=== PATIENT | female | born 1955 | race Caucasian/White ===

== ENCOUNTER → 2017-09-09 | Day surgery (SDC) | payer OTHER ==
[~2017-09-09] MED LIST: Dextrose 5%-0.45% NaCl 1,000 ML IV SCH; Midazolam 1 MG/ML 2 ML SDV IV ONE; Midazolam 1 MG/ML 2 ML SDV ONE; Sodium Chloride 0.9% 10 ML Syringe FLUSH PRN; fentaNYL 100 MCG/2 ML SDV IV ONE; fentaNYL 100 MCG/2 ML SDV ONE
--- NOTE | 2017-09-09 09:41 | OR ---
DATE: 09/09/2017 PROCEDURES PERFORMED: Total colonoscopy, NBI with magnification, and cold snare polypectomy. INSTRUMENT USED: CF-H180AL Olympus videocolonoscope. PREMEDICATIONS: Fentanyl 100 mcg intravenous and Versed 4 mg intravenous. Nasal 2 L O2 cannula. The procedure was done under pulse oximetry, BP recording, and property assessment monitor. INDICATION: Screening colonoscopic examination is done for detection of any polypoid lesions and removal, endoscopic hemostasis therapy if needed. DESCRIPTION OF PROCEDURE: Initial rectal exam showed large external hemorrhoidal tags. Rigid anoscopy showed small internal hemorrhoids without bleeding from them. The colonoscope was passed with ease. Numerous scattered diverticula were noted in the distal left colon along with deformity. The scope was passed with relative ease up to the ileocecal area, photographs were taken of the normal-appearing cecum identified by landmarks of appendiceal orifice and double-bulged ileocecal folds. No bleeding was noted from any of the visualized areas at the commencement of the examination. The bowel preparation was found to be adequate. No stricture. No vascular ectasia. No large isolated ulcerations seen. No evidence of diffuse inflammatory bowel disease in the form of friability, contact bleeding, or ulcerations. Probing the proximal sides of folds and flexures, using adequate distention and clearing of the stool material, withdrawal of the scope was made, cecum to rectum time over 6 minutes. In the distal rectum, a 5 mm sized benign-appearing polyp was noted, NBI including magnification views were obtained, photographs were taken, cold snare polypectomy was done, and the tissue was retrieved and sent for histopathology. No bleeding was noted from any of the visualized areas at the completion of the examination. IMPRESSION: 1. External and internal hemorrhoids. 2. Diverticulosis. 3. Rectal polyp. The patient tolerated the procedure well. [facility] /[id number]
--- NOTE | 2017-09-09 10:32 | LETTER ---
09/09/2017 David Shultz MD [facility] [address], [address] [place] [address] RE: JIMMYYUDY FORMAN : [address] Shultz: Ms. Yudy Serra had colonoscopic examination done this morning and she tolerated the procedure well. I herewith send a copy of the endoscopy note and photographs for your review. Thank you. Sincerely, [facility] /[id number]
[2017-09-09 14:05] VITALS: BP 140/67
== END ==
LOC: DL.ENDO 05:20
PROVIDERS: ATTEND Internal Medicine Gastroenterology
DX: Z12.11 Encounter for screening for malignant neoplasm of colon (principal); D12.8 Benign neoplasm of rectum; K57.30 Diverticulosis of large intestine without perforation or abscess without bleeding; K64.8 Other hemorrhoids; K64.4 Residual hemorrhoidal skin tags; I10 Essential (primary) hypertension; F17.200 Nicotine dependence, unspecified, uncomplicated; E03.9 Hypothyroidism, unspecified
CPT/HCPCS: 45385; J2250; J3010; J7042

== ENCOUNTER 2020-05-10 12:16 | Observation (INO) | payer OTHER ==
[2020-05-10] MEDS ORDERED: Sodium Chloride 0.9% 1,000 ML IV ONE (12:43)
[2020-05-10] MEDS ORDERED: Famotidine 20 MG/2 ML SDV IVPUSH ONE (12:45)
[2020-05-10] MEDS ORDERED: diphenhydrAMINE 50 MG/ML SDV IVPUSH ONE (12:45)
[2020-05-10] MEDS ORDERED: methylPREDNISolone Sodium Succinate 125 MG/2 ML SDV IVPUSH ONE (12:45)
--- NOTE | 2020-05-10 12:58 | EDM.PDOC ---
ED HPI GENERAL MEDICAL PROBLEM - General Chief Complaint: ENT Problem Stated Complaint: SWOLLEN TONGUE Time Seen by Provider: 05/10/20 12:28 Source of Information: Reports: Patient, RN, RN Notes Reviewed History Limitations: Reports: No Limitations - History of Present Illness INITIAL COMMENTS - FREE TEXT/NARRATIVE: Patient is a 64-year-old female who presents to ER with complaint of tongue swelling that began about 10:00 A.M. She has difficulty swallowing. States she got dizzy and fell at 09:00 A.M.and felt like she was going to pass out. Her lsat dizzy spell was last April for a syncopal episode. She had incontinence of urine with dizzy episode today. Patient states takes Lisinopril for hypertension that she has taken for 1 year. She [facility]. She had positive November. She has nausea now. No chest pain, shortness of breath, neck pain, sinus pressure, loss of taste or smell, fever, chills, vomiting and diarrhea. Onset: Today Location: Reports: Generalized Severity: Severe Improves with: Reports: None Worsens with: Reports: None - Related Data Allergies Allergy/AdvReac Type Severity Reaction Status Date / Time No Known Allergies Allergy Verified 05/10/20 12:21 Home Meds: Home Meds Levothyroxine [Synthroid] 175 mcg PO ACBRK 05/19/14 [History] Chlorthalidone 25 mg PO DAILY 05/10/20 [History] lisinopriL [Lisinopril] 10 mg PO DAILY 05/10/20 [History] Past Medical History HEENT History: Reports: Impaired Vision Cardiovascular History: Reports: Hypertension Respiratory History: Reports: None Gastrointestinal History: Reports: None Genitourinary History: Reports: None [employer] History: Reports: Musculoskeletal History: Reports: Fracture Other Musculoskeletal History: HAND FRACTURE Neurological History: Reports: None Psychiatric History: Reports: None Endocrine/Metabolic History: Reports: Hypothyroidism, Obesity/BMI 30+ Hematologic History: Reports: None Immunologic History: Reports: None Oncologic (Cancer) History: Reports: None Dermatologic History: Reports: Eczema - Infectious Disease History Infectious Disease History: Reports: Chicken Pox, Measles, Mumps - Past Surgical History Head Surgeries/Procedures: Reports: None Other HEENT Surgeries/Procedures: EYE LID SURGERY BILAT EYES Cardiovascular Surgical History: Reports: None Respiratory Surgical History: Reports: None GI Surgical History: Reports: Other (See Below) Other GI Surgeries/Procedures: S/P UMBILICAL HERNIA SURGERY Female Surgical History: Reports: Tubal Ligation Endocrine Surgical History: Reports: None Neurological Surgical History: Reports: None Musculoskeletal Surgical History: Reports: None Oncologic Surgical History: Reports: None Dermatological Surgical History: Reports: None Social & Family History - Family History Other GI Family History: LIVER FAILURE Neurological: Reports: Alzheimers Disease - Tobacco Use Tobacco Use Status *Q: Current Every Day Tobacco User Years of Tobacco use: 40 Packs/Tins Daily: 1 - Caffeine Use Caffeine Use: Reports: Coffee Other Caffeine Use: AVERAGE OF 4 CUPS DAILY - Alcohol Use Days Per Week of Alcohol Use: 1 Number of Drinks Per Day: 3 Total Drinks Per Week: 3 - Recreational Drug Use Recreational Drug Use: No ED ROS ALLERGIC REACTION - Review of Systems Review Of Systems: Comprehensive ROS is negative, except as noted in HPI. ED EXAM GENERAL NO PERIP PULSE - Physical Exam Exam: See Below Exam Limited By: No Limitations General Appearance: Alert, WD/WN, No Apparent Distress Eye Exam: Bilateral Eye: EOMI, PERRL Ears: Normal External Exam, Normal Canal, Hearing Grossly Normal, Normal TMs Nose: Normal Inspection, Normal Mucosa, No Blood Throat/Mouth: Other (tongue swollen greater on left than right. ) Head: Atraumatic, Normocephalic Neck: Other (parotid swelling. Diffuse submental swelling.) Respiratory/Chest: Other (No stridor) Cardiovascular: Normal Peripheral Pulses, Regular Rate, Rhythm, No Edema, No Gallop, No JVD, No Murmur, No Rub GI/Abdominal: Normal Bowel Sounds, Soft, Non-Tender, No Organomegaly, No Distention, No Abnormal Bruit, No Mass (Female) Exam: Deferred Rectal (Female) Exam: Deferred Back Exam: Normal Inspection, Full Range of Motion, NT Extremities: Normal Inspection, Normal Range of Motion, Non-Tender, Normal Capillary Refill, No Pedal Edema Neurological: Alert, Oriented, CN II-XII Intact, Normal Cognition, Normal Gait, Normal Reflexes, No Motor/Sensory Deficits Psychiatric: Normal Affect, Normal Mood Lymphatic: Other (submental) Course - Vital Signs Last Recorded V/S: Last Vital Signs Temp 95.8 F L 05/10/20 12:25 Pulse 94 05/10/20 13:05 Resp 18 05/10/20 12:25 BP 162/84 H 05/10/20 12:25 Pulse Ox 96 05/10/20 13:05 - Orders/Labs/Meds Orders: Active Orders 24 hr Category Date Time Status Admission Diagnosis [ADT] Routine ADT 05/10/20 14:20 Ordered Admission Status [Patient Status] [ADT] Routine ADT 05/10/20 14:20 Active UA W/ALICE RFLX IF INDICATED [URIN] Stat Lab 05/10/20 12:42 Ordered Labs: Laboratory Tests 05/10/20 05/10/20 05/10/20 Range/Units 12:55 12:55 12:55 WBC 7.6 (5.0-10.0) 10^3/uL RBC 4.55 (4.2-5.4) 10^6/uL Hgb 14.2 (12.0-16.0) g/dL Hct 38.3 (37.0-47.0) % MCV 84.2 D (80-100) fL MCH 31.2 (27.0-34.0) pg MCHC 37.1 H (33.0-35.0) g/dL Plt Count 167 D (150-450) 10^3/uL Neut % (Auto) 83.2 H (42.2-75.2) % Lymph % (Auto) 9.7 L (20.5-50.1) % Green % (Auto) 5.8 (2-8) % Eos % (Auto) 1.0 (1.0-3.0) % Baso % (Auto) 0.3 (0.0-1.0) % Sodium 122 L (136-145) mmol/L Potassium 3.6 (3.5-5.1) mmol/L Chloride 85 L (98-107) mmol/L Carbon Dioxide 28 (21-32) mmol/L Anion Gap 12.6 (7-13) mEq/L BUN 11 (7-18) mg/dL Creatinine 0.70 (0.55-1.02) mg/dL Est Cr Clr Drug Dosing 79.99 mL/min Estimated GFR (MDRD) > 60 BUN/Creatinine Ratio 15.7 (No establ ref range) Glucose 107 H (74-99) mg/dL Lactic Acid 1.1 (0.4-2.0) mmol/L Calcium 9.1 (8.5-10.1) mg/dL Total Bilirubin 0.4 (0.2-1.0) mg/dL AST 14 L (15-37) U/L ALT 21 (14-59) U/L Alkaline Phosphatase 64 (46-116) U/L Troponin I < 0.017 (0.000-0.056) ng/mL C-Reactive Protein < 0.2 (0.0-0.9) mg/dL Total Protein 7.4 (6.4-8.2) g/dL Albumin 4.0 (3.4-5.0) g/dL Globulin 3.4 Albumin/Globulin Ratio 1.2 TSH, Ultra Sensitive (0.36-3.74) uIU/mL 05/10/20 Range/Units 12:55 WBC (5.0-10.0) 10^3/uL RBC (4.2-5.4) 10^6/uL Hgb (12.0-16.0) g/dL Hct (37.0-47.0) % MCV (80-100) fL MCH (27.0-34.0) pg MCHC (33.0-35.0) g/dL Plt Count (150-450) 10^3/uL Neut % (Auto) (42.2-75.2) % Lymph % (Auto) (20.5-50.1) % Green % (Auto) (2-8) % Eos % (Auto) (1.0-3.0) % Baso % (Auto) (0.0-1.0) % Sodium (136-145) mmol/L Potassium (3.5-5.1) mmol/L Chloride (98-107) mmol/L Carbon Dioxide (21-32) mmol/L Anion Gap (7-13) mEq/L BUN (7-18) mg/dL Creatinine (0.55-1.02) mg/dL Est Cr Clr Drug Dosing mL/min Estimated GFR (MDRD) BUN/Creatinine Ratio (No establ ref range) Glucose (74-99) mg/dL Lactic Acid (0.4-2.0) mmol/L Calcium (8.5-10.1) mg/dL Total Bilirubin (0.2-1.0) mg/dL AST (15-37) U/L ALT (14-59) U/L Alkaline Phosphatase (46-116) U/L Troponin I (0.000-0.056) ng/mL C-Reactive Protein (0.0-0.9) mg/dL Total Protein (6.4-8.2) g/dL Albumin (3.4-5.0) g/dL Globulin Albumin/Globulin Ratio TSH, Ultra Sensitive 0.12 L (0.36-3.74) uIU/mL Meds: Medications Discontinued Medications Generic Name Dose Route Start Last Admin Trade Name Freq PRN Reason Stop Dose Admin Diphenhydramine HCl 50 mg 05/10/20 12:45 05/10/20 12:54 Benadryl IVPUSH 05/10/20 12:46 50 mg ONETIME ONE Administration Epinephrine HCl 0.3 mg 05/10/20 13:06 05/10/20 13:13 Adrenalin IM 05/10/20 13:07 0.3 mg ONETIME ONE Administration Famotidine 20 mg 05/10/20 12:45 05/10/20 12:55 Pepcid IVPUSH 05/10/20 12:46 20 mg ONETIME ONE Administration Sodium Chloride 1,000 mls @ 999 mls/hr 05/10/20 12:43 05/10/20 12:54 Normal Saline IV 05/10/20 13:43 999 mls/hr .BOLUS ONE Administration Methylprednisolone Sodium Succinate 125 mg 05/10/20 12:45 05/10/20 12:55 Solu-Medrol IVPUSH 05/10/20 12:46 125 mg ONETIME ONE Administration Racepinephrine Confirm 05/10/20 12:59 05/10/20 13:07 S-2 2.25% Administered 05/10/20 13:00 0.5 ml Dose Administration 0.5 ml .ROUTE .[employer]-MED ONE - Radiology Interpretation Free Text/Narrative:: Neck/Soft Tissue xray: PROCEDURE INFORMATION: Exam: XR Soft Tissue Neck Exam date and time: 05/10/2020 1:32 PM Age: 64 years old Clinical indication: Other: Allergic reaction TECHNIQUE: Imaging protocol: XR of the soft tissues of the neck. COMPARISON: CR Cervical Spine 2V or 3V 12/20/2013 12:08 PM FINDINGS: Airway: The airway appears patent. No soft tissue mass. Soft tissues: See "Airway" finding. Bones/joints: Unremarkable. IMPRESSION: Unremarkable study. Thank you for allowing us to participate in the care of your patient. Dictated and Authenticated by: Robert Kaba MD 05/10/2020 1:54 PM Central Time ([place] & [place]) See rad report - Re-Assessments/Exams Free Text/Narrative Re-Assessment/Exam: 05/10/20 14:06 I personally performed or re-performed the physical examination and medical decision making. I have verified all student documentation or findings, including history, physical exam and/or medical decision making. Discussed patient case with Dr. Horta who agreed to accept the patient for observation admission. Departure - Departure Time of Disposition: 14:07 Disposition: Refer to Observation Condition: Good Clinical Impression: Angioedema due to angiotensin converting enzyme inhibitor (JAIR-I) Angioedema Qualifiers: Encounter type: initial encounter Qualified Code(s): T78.3XXA - Angioneurotic edema, initial encounter - Discharge Information *PRESCRIPTION DRUG MONITORING PROGRAM REVIEWED*: No *COPY OF PRESCRIPTION DRUG MONITORING REPORT IN PATIENT JADA: No Referrals: PCP,None [Primary Care Provider] - Forms: ED Department Discharge Sepsis Event Note (ED) - Evaluation Sepsis Screening Result: No Definite Risk - Focused Exam Vital Signs: Vital Signs Temp Pulse Resp BP Pulse Ox Pulse Ox 05/10/20 13:05 94 96 05/10/20 12:25 95.8 F L 103 H 18 162/84 H 99 - My Orders Last 24 Hours: My Active Orders 05/10/20 14:20 Admission Diagnosis [ADT] Routine Admission Status [Patient Status] [ADT] Routine - Assessment/Plan Last 24 Hours: My Active Orders 05/10/20 14:20 Admission Diagnosis [ADT] Routine Admission Status [Patient Status] [ADT] Routine
[2020-05-10] MEDS ORDERED: Racepinephrine 2.25% 0.5 ML Neb Soln ONE (12:59)
[2020-05-10] MEDS ORDERED: EPINEPHrine 1 MG/1 ML Amp IM ONE (13:06)
[2020-05-10 13:24] LABS: ANION GAP 12.6 mEq/L (7-13); CHLORIDE,CL 85 mmol/L (98-107); SODIUM,NA 122 mmol/L (136-145)
--- NOTE | 2020-05-10 13:55 | CR ---
PROCEDURE INFORMATION: Exam: XR Soft Tissue Neck Exam date and time: 05/10/2020 1:32 PM Age: 64 years old Clinical indication: Other: Allergic reaction TECHNIQUE: Imaging protocol: XR of the soft tissues of the neck. COMPARISON: CR Cervical Spine 2V or 3V 12/20/2013 12:08 PM FINDINGS: Airway: The airway appears patent. No soft tissue mass. Soft tissues: See "Airway" finding. Bones/joints: Unremarkable. IMPRESSION: Unremarkable study.
[2020-05-10] MEDS ORDERED: Sodium Chloride 0.9% Inhalation Soln 3 ML Neb INH PRN (16:21)
[2020-05-10] MEDS ORDERED: Racepinephrine 2.25% 0.5 ML Neb Soln NEB ONE (16:21)
--- NOTE | 2020-05-10 16:22 | PCM.HP ---
H&P History of Present Illness - General Date of Service: 05/10/20 Admit Problem/Dx: Admission Diagnosis/Problem Admission Diagnosis/Problem Angioedema Source of Information: Patient - History of Present Illness Initial Comments - Free Text/Narative: 64-year-old lady with a history of hypertension who has been on lisinopril and chlorthalidone. She has a history of COVID 19 infection in February has a history of prior syncopal episode about a year ago She developed dizziness and fell when trying to get her dog out in the morning. she did not hit her head. she was still a bit dizzy and went to bed. An hour later she woke up feeling her tongue swollen. she does not remember biting the tongue, there was no bleeding or pain. this was the left side of the tongue only, when she called her sister is sister said that she is sounding funny over the phone. Symptoms did not improve and came to the emergency room. Concern was allergic reaction, possible angioedema She was given epinephrine, Pepcid, Solu-Medrol. Her symptoms have resolved She never had respiratory symptoms. There was no wheezing noted. 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 OB/BYN History: tubal ligation 1991 Musculoskeletal History: Reports: Fracture Other Musculoskeletal History: HAND FRACTURE Neurological History: Reports: None Psychiatric History: Reports: None Endocrine/Metabolic History: Reports: Hypothyroidism, Obesity/BMI 30+ Hematologic History: Reports: None Immunologic History: Reports: None Oncologic (Cancer) History: Reports: None Dermatologic History: Reports: Eczema - Infectious Disease History Infectious Disease History: Reports: Chicken Pox, Measles, Mumps, Other (See Below) Other Infectious Disease History: Covid 19 in February - Past Surgical History Head Surgeries/Procedures: Reports: None Other HEENT Surgeries/Procedures: EYE LID SURGERY BILAT EYES Cardiovascular Surgical History: Reports: None Respiratory Surgical History: Reports: None GI Surgical History: Reports: Other (See Below) Other GI Surgeries/Procedures: S/P UMBILICAL HERNIA SURGERY Female Surgical History: Reports: Tubal Ligation Endocrine Surgical History: Reports: None Neurological Surgical History: Reports: None Musculoskeletal Surgical History: Reports: None Oncologic Surgical History: Reports: None Dermatological Surgical History: Reports: None Social & Family History - Family History Family Medical History: No Pertinent Family History Other GI Family History: LIVER FAILURE Neurological: Reports: Alzheimers Disease - Tobacco Use Tobacco Use Status *Q: Current Every Day Tobacco User Years of Tobacco use: 1 Packs/Tins Daily: 30 Used Tobacco, but Quit: No Second Hand Smoke Exposure: No - Caffeine Use Caffeine Use: Reports: Coffee Other Caffeine Use: drinks 3 cups coffee once daily - Alcohol Use Days Per Week of Alcohol Use: 1 Number of Drinks Per Day: 3 Total Drinks Per Week: 3 Date of Last Drink: 05/09/20 Time of Last Drink: 21:00 - Recreational Drug Use Recreational Drug Use: No H&P Review of Systems - Review of Systems: Review Of Systems: See Below General: Denies: Fever, Chills, Malaise Pulmonary: Denies: Shortness of Breath Cardiovascular: Denies: Chest Pain Gastrointestinal: Denies: Abdominal Pain Psychiatric: Denies: Confusion Exam - Exam Exam: See Below - Vital Signs Vital Signs: Last Vital Signs Temp 98.2 F 05/10/20 15:00 Pulse 86 05/10/20 15:00 Resp 18 05/10/20 15:00 BP 137/73 05/10/20 15:00 Pulse Ox 99 05/10/20 15:00 Weight: 161 lb - Exam General: Alert, Oriented HEENT: EOMI, Other (Mouth is clear, no ulceration, no injury to the tongue, no apparent swelling of the lips or tongue. Can move the tongue appropriately) Neck: Supple Lungs: Clear to Auscultation, Normal Respiratory Effort Cardiovascular: Regular Rate, Regular Rhythm GI/Abdominal Exam: Normal Bowel Sounds, Soft, Non-Tender Extremities: No Pedal Edema - Patient Data Lab Results Last 24 hrs: Laboratory Results - last 24 hr 05/10/20 05/10/20 05/10/20 Range/Units 12:55 12:55 12:55 WBC 7.6 (5.0-10.0) 10^3/uL RBC 4.55 (4.2-5.4) 10^6/uL Hgb 14.2 (12.0-16.0) g/dL Hct 38.3 (37.0-47.0) % MCV 84.2 D (80-100) fL MCH 31.2 (27.0-34.0) pg MCHC 37.1 H (33.0-35.0) g/dL Plt Count 167 D (150-450) 10^3/uL Neut % (Auto) 83.2 H (42.2-75.2) % Lymph % (Auto) 9.7 L (20.5-50.1) % [place] % (Auto) 5.8 (2-8) % Eos % (Auto) 1.0 (1.0-3.0) % Baso % (Auto) 0.3 (0.0-1.0) % Sodium 122 L (136-145) mmol/L Potassium 3.6 (3.5-5.1) mmol/L Chloride 85 L (98-107) mmol/L Carbon Dioxide 28 (21-32) mmol/L Anion Gap 12.6 (7-13) mEq/L BUN 11 (7-18) mg/dL Creatinine 0.70 (0.55-1.02) mg/dL Est Cr Clr Drug Dosing 79.99 mL/min Estimated GFR (MDRD) > 60 BUN/Creatinine Ratio 15.7 (No establ ref range) Glucose 107 H (74-99) mg/dL Lactic Acid 1.1 (0.4-2.0) mmol/L Calcium 9.1 (8.5-10.1) mg/dL Total Bilirubin 0.4 (0.2-1.0) mg/dL AST 14 L (15-37) U/L ALT 21 (14-59) U/L Alkaline Phosphatase 64 (46-116) U/L Troponin I < 0.017 (0.000-0.056) ng/mL C-Reactive Protein < 0.2 (0.0-0.9) mg/dL Total Protein 7.4 (6.4-8.2) g/dL Albumin 4.0 (3.4-5.0) g/dL Globulin 3.4 Albumin/Globulin Ratio 1.2 TSH, Ultra Sensitive (0.36-3.74) uIU/mL 05/10/20 Range/Units 12:55 WBC (5.0-10.0) 10^3/uL RBC (4.2-5.4) 10^6/uL Hgb (12.0-16.0) g/dL Hct (37.0-47.0) % MCV (80-100) fL MCH (27.0-34.0) pg MCHC (33.0-35.0) g/dL Plt Count (150-450) 10^3/uL Neut % (Auto) (42.2-75.2) % Lymph % (Auto) (20.5-50.1) % [place] % (Auto) (2-8) % Eos % (Auto) (1.0-3.0) % Baso % (Auto) (0.0-1.0) % Sodium (136-145) mmol/L Potassium (3.5-5.1) mmol/L Chloride (98-107) mmol/L Carbon Dioxide (21-32) mmol/L Anion Gap (7-13) mEq/L BUN (7-18) mg/dL Creatinine (0.55-1.02) mg/dL Est Cr Clr Drug Dosing mL/min Estimated GFR (MDRD) BUN/Creatinine Ratio (No establ ref range) Glucose (74-99) mg/dL Lactic Acid (0.4-2.0) mmol/L Calcium (8.5-10.1) mg/dL Total Bilirubin (0.2-1.0) mg/dL AST (15-37) U/L ALT (14-59) U/L Alkaline Phosphatase (46-116) U/L Troponin I (0.000-0.056) ng/mL C-Reactive Protein (0.0-0.9) mg/dL Total Protein (6.4-8.2) g/dL Albumin (3.4-5.0) g/dL Globulin Albumin/Globulin Ratio TSH, Ultra Sensitive 0.12 L (0.36-3.74) uIU/mL Result Diagrams: 05/10/20 12:55 05/10/20 12:55 - Problem List (1) Hypertension SNOMED Code(s): 09502001 ICD Code: I10 - ESSENTIAL (PRIMARY) HYPERTENSION Status: Acute Current Visit: Yes (2) Hyponatremia SNOMED Code(s): 37008157 ICD Code: E87.1 - HYPO-OSMOLALITY AND HYPONATREMIA Status: Acute Current Visit: Yes (3) Angioedema due to angiotensin converting enzyme inhibitor (ELIU-I) SNOMED Code(s): 084416395 ICD Code: T78.3XXA - ANGIONEUROTIC EDEMA, INITIAL ENCOUNTER; T46.4X5A - ADVERSE EFFECT OF [id number] INHIBITORS, INIT Status: Acute Current Visit: No Problem List Initiated/Reviewed/Updated: Yes Orders Last 24hrs: Active Orders 24 hr Category Date Time Status Admission Diagnosis [ADT] Routine ADT 05/10/20 14:20 Ordered Admission Status [Patient Status] [ADT] Routine ADT 05/10/20 14:20 Active UA W/ALICE RFLX IF INDICATED [URIN] Stat Lab 05/10/20 12:42 Ordered Famotidine [Pepcid] Med 05/10/20 21:00 Active 20 mg PO BID Levothyroxine [Synthroid] Med 05/11/20 06:00 Ordered 175 mcg PO ACBRK amLODIPine [Norvasc] Med 05/11/20 09:00 Ordered 5 mg PO DAILY diphenhydrAMINE [Benadryl] Med 05/10/20 16:00 Active 25 mg PO TID predniSONE Med 05/10/20 16:00 Active 20 mg PO Q6H Medication Orders Amlodipine Besylate (Norvasc) 5 mg PO DAILY STEVAN Diphenhydramine HCl (Benadryl) 25 mg PO TID STEVAN Famotidine (Pepcid) 20 mg PO BID STEVAN Levothyroxine Sodium (Synthroid) 175 mcg PO ACBRK STEVAN Prednisone (Prednisone) 20 mg PO Q6H STEVAN Assessment/Plan Comment:: 64-year-old lady with a history of hypertension who has been on lisinopril and chlorthalidone. She has a history of COVID 19 infection in February has a history of prior syncopal episode about a year ago She developed dizziness and fell when trying to get her dog out in the morning. she did not hit her head. she was still a bit dizzy and went to bed. An hour later she woke up feeling her tongue swollen. she does not remember biting the tongue, there was no bleeding or pain. this was the left side of the tongue only, when she called her sister is sister said that she is sounding funny over the phone. Symptoms did not improve and came to the emergency room. Concern was allergic reaction, possible angioedema She was given epinephrine, Pepcid, Solu-Medrol. Her symptoms have resolved She never had respiratory symptoms. There was no wheezing noted. Tongue swelling Likely allergic reaction Possible angioedema secondary to Eliu inhibitors, Lisinopril possibly but less likely injury, biting following a fall Treat with Pepcid, Benadryl, prednisone Monitor for worsening dizziness Appears resolved We'll monitor Hyponatremia Stop chlorthalidone Well monitor History of hypertension Will not use ELIU inhibitor, ARB, hydrochlorothiazide, chlorthalidone Well use Norvasc DVT prophylaxis with subcutaneous heparin
[2020-05-10] MEDS: predniSONE 20 MG Tab PO SCH ×2 (17:13→21:08)
[2020-05-10] MEDS: diphenhydrAMINE 25 MG Tab PO SCH ×2 (17:13→21:08)
[2020-05-10] MEDS ORDERED: Ondansetron 4 MG/2 ML SDV IVPUSH PRN (20:03)
[2020-05-10] MEDS ORDERED: Temazepam 15 MG Cap PO PRN (20:03)
[2020-05-10] MEDS ORDERED: Acetaminophen 325 MG Tab PO PRN (20:03)
[2020-05-10] MEDS: Famotidine 20 MG Tab PO SCH (21:08)
[2020-05-10] MEDS: Heparin Sodium 5,000 Units/ML Vial SUBCUT SCH (21:09)
[2020-05-11] MEDS: predniSONE 20 MG Tab PO SCH ×2 (04:37→09:02)
[2020-05-11] MEDS: Heparin Sodium 5,000 Units/ML Vial SUBCUT SCH (05:57)
[2020-05-11] MEDS ORDERED: Levothyroxine 100 MCG Tab PO SCH (06:00)
[2020-05-11] MEDS ORDERED: Levothyroxine 75 MCG Tab PO SCH (06:00)
[2020-05-11] MEDS ORDERED: amLODIPine 5 MG Tab PO SCH (09:00)
[2020-05-11] MEDS: diphenhydrAMINE 25 MG Tab PO SCH (09:02)
[2020-05-11] MEDS: Famotidine 20 MG Tab PO SCH (09:02)
[2020-05-11 11:56] LABS: ANION GAP 15.5 mEq/L (7-13); CHLORIDE,CL 90 mmol/L (98-107); SODIUM,NA 129 mmol/L (136-145)
[2020-05-11 12:11] VITALS: BP 127/74; PULSE 73
--- NOTE | 2020-05-11 12:27 | PCM.DCSUM1 ---
Discharge Summary - Hospital Course Free Text/Narrative:: 64-year-old lady with a history of hypertension who has been on lisinopril and chlorthalidone. She has a history of COVID 19 infection in February has a history of prior syncopal episode about a year ago She developed dizziness and fell when trying to get her dog out in the morning. she did not hit her head. she was still a bit dizzy and went to bed. An hour later she woke up feeling her tongue swollen. she does not remember biting the tongue, there was no bleeding or pain. this was the left side of the tongue only, when she called her sister is sister said that she is sounding funny over the phone. Symptoms did not improve and came to the emergency room. Concern was allergic reaction, possible angioedema She was given epinephrine, Pepcid, Solu-Medrol. Her symptoms have resolved She never had respiratory symptoms. There was no wheezing noted. Tongue swelling Likely allergic reaction Possible angioedema secondary to Eliu inhibitors, Lisinopril possibly but less likely injury, biting following a fall resolved following Solu-Medrol, epinephrine, Pepcid treatment continued to treat with Pepcid, Benadryl, prednisone had no recurrent symptoms Will continue a few more doses of prednisone, Pepcid, Benadryl as outpatient dizziness Appears resolved Hyponatremia improved Stopped chlorthalidone monitor periodically as outpatient History of hypertension Will not use ELIU inhibitor, ARB, hydrochlorothiazide, chlorthalidone start [facility] Diagnosis: Stroke: No - Discharge Data Discharge Date: 05/11/20 Discharge Disposition: Home, Self-Care 01 Condition: Good - Referral to Home Health Primary Care Physician: PCP None - Discharge Diagnosis/Problem(s) (1) Hypertension SNOMED Code(s): 71862873 ICD Code: I10 - ESSENTIAL (PRIMARY) HYPERTENSION Status: Acute Current Visit: Yes (2) Hyponatremia SNOMED Code(s): 77254055 ICD Code: E87.1 - HYPO-OSMOLALITY AND HYPONATREMIA Status: Acute Current Visit: Yes (3) Angioedema due to angiotensin converting enzyme inhibitor (ELIU-I) SNOMED Code(s): 809204333 ICD Code: T78.3XXA - ANGIONEUROTIC EDEMA, INITIAL ENCOUNTER; T46.4X5A - ADVERSE EFFECT OF [id number] INHIBITORS, INIT Status: Acute Current Visit: No - Patient Instructions Diet: Heart Healthy Diet Activity: As Tolerated - Discharge Plan *PRESCRIPTION DRUG MONITORING PROGRAM REVIEWED*: No *COPY OF PRESCRIPTION DRUG MONITORING REPORT IN PATIENT JADA: No Prescriptions/Med Rec: diphenhydrAMINE [Benadryl] 25 mg PO BID #6 tablet amLODIPine [Norvasc] 5 mg PO DAILY #30 tablet Famotidine [Pepcid] 20 mg PO BID #10 tablet predniSONE 20 mg PO DAILY #3 tablet Home Medications: Home Meds Levothyroxine [Synthroid] 175 mcg PO ACBRK 05/19/14 [History] Famotidine [Pepcid] 20 mg PO BID #10 tablet 05/11/20 [Rx] amLODIPine [Norvasc] 5 mg PO DAILY #30 tablet 05/11/20 [Rx] diphenhydrAMINE [Benadryl] 25 mg PO BID #6 tablet 05/11/20 [Rx] predniSONE 20 mg PO DAILY #3 tablet 05/11/20 [Rx] Oxygen Therapy Mode: Room Air Forms: ED Department Discharge Referrals: PCP,None [Primary Care Provider] - ([facility] clinic in 3 days) - Discharge Summary/Plan Comment DC Time >30 min.: No - General Info Date of Service: 05/11/20 - Review of Systems General: Denies: Fever, Weakness HEENT: Reports: Other (no lip or tongue swelling, speech is clear) Pulmonary: Denies: Shortness of Breath Cardiovascular: Denies: Chest Pain, Edema Genitourinary: Denies: Frequency Skin: Denies: Pruritis Neurological: Denies: Confusion - Patient Data Vitals - Most Recent: Last Vital Signs Temp 98.2 F 05/11/20 12:00 Pulse 73 05/11/20 12:00 Resp 18 05/11/20 12:00 BP 127/74 05/11/20 12:00 Pulse Ox 98 05/11/20 12:00 Weight - Most Recent: 161 lb I&O - Last 24 hours: Intake & Output 05/10/20 05/11/20 05/11/20 22:59 06:59 14:59 Intake Total 760 200 Output Total 300 Balance 460 200 Lab Results - Last 24 hrs: Laboratory Results - last 24 hr 05/10/20 05/10/20 05/10/20 Range/Units 12:55 12:55 12:55 WBC 7.6 (5.0-10.0) 10^3/uL RBC 4.55 (4.2-5.4) 10^6/uL Hgb 14.2 (12.0-16.0) g/dL Hct 38.3 (37.0-47.0) % MCV 84.2 D (80-100) fL MCH 31.2 (27.0-34.0) pg MCHC 37.1 H (33.0-35.0) g/dL Plt Count 167 D (150-450) 10^3/uL Neut % (Auto) 83.2 H (42.2-75.2) % Lymph % (Auto) 9.7 L (20.5-50.1) % [place] % (Auto) 5.8 (2-8) % Eos % (Auto) 1.0 (1.0-3.0) % Baso % (Auto) 0.3 (0.0-1.0) % Sodium 122 L (136-145) mmol/L Potassium 3.6 (3.5-5.1) mmol/L Chloride 85 L (98-107) mmol/L Carbon Dioxide 28 (21-32) mmol/L Anion Gap 12.6 (7-13) mEq/L BUN 11 (7-18) mg/dL Creatinine 0.70 (0.55-1.02) mg/dL Est Cr Clr Drug Dosing 79.99 mL/min Estimated GFR (MDRD) > 60 BUN/Creatinine Ratio 15.7 (No establ ref range) Glucose 107 H (74-99) mg/dL Lactic Acid 1.1 (0.4-2.0) mmol/L Calcium 9.1 (8.5-10.1) mg/dL Total Bilirubin 0.4 (0.2-1.0) mg/dL AST 14 L (15-37) U/L ALT 21 (14-59) U/L Alkaline Phosphatase 64 (46-116) U/L Troponin I < 0.017 (0.000-0.056) ng/mL C-Reactive Protein < 0.2 (0.0-0.9) mg/dL Total Protein 7.4 (6.4-8.2) g/dL Albumin 4.0 (3.4-5.0) g/dL Globulin 3.4 Albumin/Globulin Ratio 1.2 TSH, Ultra Sensitive (0.36-3.74) uIU/mL Urine Color (YELLOW) Urine Appearance (CLEAR) Urine pH (5.0-9.0) Ur Specific [place] (1.005-1.030) Urine Protein (NEGATIVE) Urine Glucose (UA) (NEGATIVE) Urine Ketones (NEGATIVE) Urine Occult Blood (NEGATIVE) Urine Nitrite (NEGATIVE) Urine Bilirubin (NEGATIVE) Urine Urobilinogen (0.2-1.0) mg/dL Ur Leukocyte Esterase (NEGATIVE) Urine RBC /HPF Urine WBC (0-5/HPF) /HPF Ur Epithelial Cells (NOT SEEN) /HPF Amorphous Sediment (NOT SEEN) /HPF Urine Bacteria (0-FEW/HPF) /HPF 05/10/20 05/10/20 05/11/20 Range/Units 12:55 14:30 11:34 WBC (5.0-10.0) 10^3/uL RBC (4.2-5.4) 10^6/uL Hgb (12.0-16.0) g/dL Hct (37.0-47.0) % MCV (80-100) fL MCH (27.0-34.0) pg MCHC (33.0-35.0) g/dL Plt Count (150-450) 10^3/uL Neut % (Auto) (42.2-75.2) % Lymph % (Auto) (20.5-50.1) % [place] % (Auto) (2-8) % Eos % (Auto) (1.0-3.0) % Baso % (Auto) (0.0-1.0) % Sodium 129 L (136-145) mmol/L Potassium 3.5 (3.5-5.1) mmol/L Chloride 90 L (98-107) mmol/L Carbon Dioxide 27 (21-32) mmol/L Anion Gap 15.5 H (7-13) mEq/L BUN 13 (7-18) mg/dL Creatinine 0.80 (0.55-1.02) mg/dL Est Cr Clr Drug Dosing 69.99 mL/min Estimated GFR (MDRD) > 60 BUN/Creatinine Ratio (No establ ref range) Glucose 118 H (74-99) mg/dL Lactic Acid (0.4-2.0) mmol/L Calcium 9.0 (8.5-10.1) mg/dL Total Bilirubin (0.2-1.0) mg/dL AST (15-37) U/L ALT (14-59) U/L Alkaline Phosphatase (46-116) U/L Troponin I (0.000-0.056) ng/mL C-Reactive Protein (0.0-0.9) mg/dL Total Protein (6.4-8.2) g/dL Albumin (3.4-5.0) g/dL Globulin Albumin/Globulin Ratio TSH, Ultra Sensitive 0.12 L (0.36-3.74) uIU/mL Urine Color Yellow (YELLOW) Urine Appearance Clear (CLEAR) Urine pH 7.0 (5.0-9.0) Ur Specific [place] 1.015 (1.005-1.030) Urine Protein Negative (NEGATIVE) Urine Glucose (UA) Negative (NEGATIVE) Urine Ketones Trace H (NEGATIVE) Urine Occult Blood Small H (NEGATIVE) Urine Nitrite Negative (NEGATIVE) Urine Bilirubin Negative (NEGATIVE) Urine Urobilinogen 0.2 (0.2-1.0) mg/dL Ur Leukocyte Esterase Negative (NEGATIVE) Urine RBC 0-5 /HPF Urine WBC 0-5 (0-5/HPF) /HPF Ur Epithelial Cells Moderate H (NOT SEEN) /HPF Amorphous Sediment Few (NOT SEEN) /HPF Urine Bacteria Few (0-FEW/HPF) /HPF Med Orders - Current: Current Medications Acetaminophen (Tylenol) 650 mg PO Q4H PRN PRN Reason: Pain (Mild 1-3)/fever Last Admin: 05/11/20 07:57 Dose: 650 mg Documented by: Amlodipine Besylate (Norvasc) 5 mg PO DAILY COUNTS INCLUDE 234 BEDS AT THE [facility] Last Admin: 05/11/20 09:02 Dose: 5 mg Documented by: Diphenhydramine HCl (Benadryl) 25 mg PO TID COUNTS INCLUDE 234 BEDS AT THE [facility] Last Admin: 05/11/20 09:02 Dose: 25 mg Documented by: Famotidine (Pepcid) 20 mg PO BID COUNTS INCLUDE 234 BEDS AT THE [facility] Last Admin: 05/11/20 09:02 Dose: 20 mg Documented by: Heparin Sodium (Porcine) (Heparin Sodium) 5,000 units SUBCUT Q8HR COUNTS INCLUDE 234 BEDS AT THE [facility] Last Admin: 05/11/20 05:57 Dose: 5,000 units Documented by: Levothyroxine Sodium (Synthroid) 100 mcg PO [facility] Last Admin: 05/11/20 05:56 Dose: 100 mcg Documented by: Levothyroxine Sodium (Levothyroxine) 75 mcg PO [facility] Last Admin: 05/11/20 05:57 Dose: 75 mcg Documented by: Ondansetron HCl (Zofran) 4 mg IVPUSH Q6H PRN PRN Reason: Nausea/Vomiting Prednisone (Prednisone) 20 mg PO Q6H COUNTS INCLUDE 234 BEDS AT THE [facility] Last Admin: 05/11/20 09:02 Dose: 20 mg Documented by: Temazepam (Restoril) 15 mg PO BEDTIME PRN PRN Reason: Sleep Last Admin: 05/10/20 21:09 Dose: 15 mg Documented by: Discontinued Medications Diphenhydramine HCl (Benadryl) 50 mg IVPUSH ONETIME ONE Stop: 05/10/20 12:46 Last Admin: 05/10/20 12:54 Dose: 50 mg Documented by: Epinephrine HCl (Adrenalin) 0.3 mg IM ONETIME ONE Stop: 05/10/20 13:07 Last Admin: 05/10/20 13:13 Dose: 0.3 mg Documented by: Famotidine (Pepcid) 20 mg IVPUSH ONETIME ONE Stop: 05/10/20 12:46 Last Admin: 05/10/20 12:55 Dose: 20 mg Documented by: Sodium Chloride (Normal Saline) 1,000 mls @ 999 mls/hr IV .BOLUS ONE Stop: 05/10/20 13:43 Last Admin: 05/10/20 12:54 Dose: 999 mls/hr Documented by: Methylprednisolone Sodium Succinate (Solu-Medrol) 125 mg IVPUSH ONETIME ONE Stop: 05/10/20 12:46 Last Admin: 05/10/20 12:55 Dose: 125 mg Documented by: Racepinephrine (S-2 2.25%) Confirm Administered Dose 0.5 ml .ROUTE .STK-MED ONE Stop: 05/10/20 13:00 Last Admin: 05/10/20 13:07 Dose: 0.5 ml Documented by: - Exam General: Reports: Alert, Oriented HEENT: Reports: Other (no lip or tongue swelling) Neck: Reports: Supple Lungs: Reports: Clear to Auscultation, Normal Respiratory Effort. Denies: Wheezing Cardiovascular: Reports: Regular Rate, Regular Rhythm GI/Abdominal Exam: Normal Bowel Sounds, Soft, Non-Tender Extremities: No Pedal Edema Skin: Reports: Warm, Dry. Denies: Rash
== END 2020-05-11 13:25 | disposition home or self-care (01) ==
LOC: DL.ED 12:16 → DL.MS 14:20 → DL.ED 14:24
PROVIDERS: ADMIT Internal Medicine; ATTEND Internal Medicine
DX: T78.3XXA Angioneurotic edema, initial encounter (principal); R42 Dizziness and giddiness; I10 Essential (primary) hypertension; E03.9 Hypothyroidism, unspecified; E66.9 Obesity, unspecified; F17.210 Nicotine dependence, cigarettes, uncomplicated; E87.1 Hypo-osmolality and hyponatremia; Z79.899 Other long term (current) drug therapy; Z79.890 Hormone replacement therapy; Z98.890 Other specified postprocedural states; Z68.25 Body mass index [BMI] 25.0-25.9, adult
CPT/HCPCS: 36415; 70360; 80048; 80053; 81001; 83605; 84443; 84484; 85025; 86140; 93005; 94640; 96372; 96374; 96375; 99217; 99218; 99284; 99285; A9270; G0378; J0171; J1200; J1644; J2930; J3490; J7030; J7512

== ENCOUNTER 2020-05-20 13:33 | Emergency (ER) | payer OTHER ==
--- NOTE | 2020-05-20 14:16 | EDM.PDOC ---
<Terry Cohen - Last Filed: 05/20/20 15:07> ED HPI GENERAL MEDICAL PROBLEM - General Chief Complaint: Cardiovascular Problem Stated Complaint: HIGH BLOOD PRESSURE, HEADACHE, SHAKING Time Seen by Provider: 05/20/20 13:40 Source of Information: Reports: Patient History Limitations: Reports: No Limitations - History of Present Illness INITIAL COMMENTS - FREE TEXT/NARRATIVE: 64 y/o F c/o URBAN, high blood pressure and aching under her left shoulder blade. The aching under the shoulder blade started last night about 7:30 and patient went to sleep with the pain about 10:30. Pt was pain free this morning but developed a sudden onset URBAN and hypertension. Pt was seen in the ER two weeks ago for angioedema secondary to an JAIR inhibitor. Pt followed up with [place] doctor who put her on Norvasc 5mg for HTN. Pt denies vision prob, sob, abd pn, pelvic pain, extremity pain, N/V/D. Onset: Sudden Duration: Hour(s): Location: Reports: Head, Chest, Generalized Quality: Reports: Ache Severity: Mild Improves with: Reports: None Worsens with: Reports: None Associated Symptoms: Reports: No Other Symptoms Head Pain Score (Numeric/FACES): 4 - Related Data Allergies Allergy/AdvReac Type Severity Reaction Status Date / Time lisinopril Allergy Severe Other Verified 05/10/20 17:24 Home Meds: Home Meds Levothyroxine [Synthroid] 175 mcg PO ACBRK 05/19/14 [History] amLODIPine [Norvasc] 5 mg PO DAILY #30 tablet 05/11/20 [Rx] Past Medical History HEENT History: Reports: Impaired Vision Cardiovascular History: Reports: Hypertension Respiratory History: Reports: None Gastrointestinal History: Reports: None Genitourinary History: Reports: None 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 MINISTRIES DIRECTOR History: tubal ligation 1991 Musculoskeletal History: Reports: Fracture Other Musculoskeletal History: HAND FRACTURE Neurological History: Reports: None Psychiatric History: Reports: None Endocrine/Metabolic History: Reports: Hypothyroidism, Obesity/BMI 30+ Hematologic History: Reports: None Immunologic History: Reports: None Oncologic (Cancer) History: Reports: None Dermatologic History: Reports: Eczema - Infectious Disease History Infectious Disease History: Reports: Chicken Pox, Measles, Mumps, Other (See Below) Other Infectious Disease History: Covid 19 in February - Past Surgical History Head Surgeries/Procedures: Reports: None Other HEENT Surgeries/Procedures: EYE LID SURGERY BILAT EYES Cardiovascular Surgical History: Reports: None Respiratory Surgical History: Reports: None GI Surgical History: Reports: Other (See Below) Other GI Surgeries/Procedures: S/P UMBILICAL HERNIA SURGERY Female Surgical History: Reports: Tubal Ligation Endocrine Surgical History: Reports: None Neurological Surgical History: Reports: None Musculoskeletal Surgical History: Reports: None Oncologic Surgical History: Reports: None Dermatological Surgical History: Reports: None Social & Family History - Family History Family Medical History: No Pertinent Family History Other GI Family History: LIVER FAILURE Neurological: Reports: Alzheimers Disease - Tobacco Use Tobacco Use Status *Q: Current Every Day Tobacco User Years of Tobacco use: 46 Packs/Tins Daily: 1 - Caffeine Use Caffeine Use: Reports: Coffee Other Caffeine Use: drinks 3 cups coffee once daily Caffeine Use Comment: 3 cups of coffee this am - Recreational Drug Use Recreational Drug Use: No ED ROS GENERAL - Review of Systems Review Of Systems: Comprehensive ROS is negative, except as noted in HPI. ED EXAM, GENERAL - Physical Exam Exam: See Below Exam Limited By: No Limitations General Appearance: Alert, WD/WN, No Apparent Distress Eye Exam: Bilateral Eye: PERRL Ears: Normal External Exam, Normal Canal, Hearing Grossly Normal, Normal TMs Nose: Normal Inspection, Normal Mucosa, No Blood Throat/Mouth: Normal Inspection, Normal Lips, Normal Teeth, Normal Gums, Normal Oropharynx, Normal Voice, No Airway Compromise Head: Atraumatic, Normocephalic Neck: Normal Inspection, Supple, Non-Tender, Full Range of Motion Respiratory/Chest: No Respiratory Distress, Lungs Clear, Normal Breath Sounds, No Accessory Muscle Use, Chest Non-Tender Cardiovascular: Normal Peripheral Pulses, Regular Rate, Rhythm, No Edema, No Gallop, No JVD, No Murmur, No Rub GI/Abdominal: Normal Bowel Sounds, Soft, Non-Tender, No Organomegaly, No Distention, No Abnormal Bruit, No Mass (Female) Exam: Deferred Rectal (Female) Exam: Deferred Back Exam: Normal Inspection, Full Range of Motion, NT Extremities: Normal Inspection, Normal Range of Motion, Non-Tender, Normal Capillary Refill, No Pedal Edema Neurological: Alert, Oriented, CN II-XII Intact, Normal Cognition, Normal Gait, Normal Reflexes, No Motor/Sensory Deficits Psychiatric: Normal Affect, Normal Mood Skin Exam: Warm, Dry, Intact, Normal Color, No Rash Departure - Departure Time of Disposition: 15:17 Disposition: Home, Self-Care 01 Condition: Good Clinical Impression: Anxiety about health Hypertension Qualifiers: Hypertension type: unspecified Qualified Code(s): I10 - Essential (primary) hypertension Instructions: Hypertension, Adult, Aumb-af-Iwrz, Managing Anxiety, Adult Forms: ED Department Discharge Additional Instructions: Follow up with your primary doctor during your video conference tomorrow. Discuss with your doctor the lab results concerning your low TSH levels because your lab values suggest you are taking too much Levothyroxine and the dose needs to be reduced. Continue to monitor your blood pressure. Check your blood pressu re before you have a cigarette or coffee as they can raise your blood pressure. Also sit at rest for 5-10 minutes before taking your blood pressure. Sepsis Event Note (ED) - Evaluation Sepsis Screening Result: No Definite Risk <Bandar Childs - Last Filed: 05/20/20 15:19> Course - Vital Signs Last Recorded V/S: Last Vital Signs Temp 37.1 C 05/20/20 13:45 Pulse 85 05/20/20 15:06 Resp 15 05/20/20 14:39 BP 143/81 H 05/20/20 15:06 Pulse Ox 98 05/20/20 14:39 - Orders/Labs/Meds Orders: Active Orders 24 hr Category Date Time Status EKG Documentation Completion [RC] STAT Care 05/20/20 13:56 Active Labs: Laboratory Tests 05/20/20 05/20/20 Range/Units 14:11 14:11 WBC 6.1 (5.0-10.0) 10^3/uL RBC 4.46 (4.2-5.4) 10^6/uL Hgb 13.8 (12.0-16.0) g/dL Hct 39.3 (37.0-47.0) % MCV 88.1 D (80-100) fL MCH 30.9 (27.0-34.0) pg MCHC 35.1 H (33.0-35.0) g/dL Plt Count 276 D (150-450) 10^3/uL Neut % (Auto) 63.2 (42.2-75.2) % Lymph % (Auto) 24.1 (20.5-50.1) % [place] % (Auto) 9.9 H (2-8) % Eos % (Auto) 2.1 (1.0-3.0) % Baso % (Auto) 0.7 (0.0-1.0) % Sodium 135 L (136-145) mmol/L Potassium 3.9 (3.5-5.1) mmol/L Chloride 100 (98-107) mmol/L Carbon Dioxide 27 (21-32) mmol/L Anion Gap 11.9 (7-13) mEq/L BUN 9 (7-18) mg/dL Creatinine 1.06 H (0.55-1.02) mg/dL Est Cr Clr Drug Dosing 54.80 mL/min Estimated GFR (MDRD) 52 BUN/Creatinine Ratio 8.5 (No establ ref range) Glucose 127 H (74-99) mg/dL Calcium 8.8 (8.5-10.1) mg/dL Total Bilirubin 0.3 (0.2-1.0) mg/dL AST 12 L (15-37) U/L ALT 21 (14-59) U/L Alkaline Phosphatase 63 (46-116) U/L Troponin I < 0.017 (0.000-0.056) ng/mL Total Protein 7.3 (6.4-8.2) g/dL Albumin 3.7 (3.4-5.0) g/dL Globulin 3.6 Albumin/Globulin Ratio 1.0 TSH, Ultra Sensitive 0.23 L (0.36-3.74) uIU/mL - Re-Assessments/Exams Free Text/Narrative Re-Assessment/Exam: 05/20/20 15:19 I have examined the patient. I have discussed findings and treatment plan with the PA student. I agree with the assessment and plan in the following students note. Sepsis Event Note (ED) - Focused Exam Vital Signs: Vital Signs Temp Pulse Resp BP Pulse Ox 05/20/20 15:06 85 143/81 H 05/20/20 14:39 82 15 153/74 H 98 05/20/20 13:45 37.1 C 99 16 188/106 H 97
[2020-05-20 14:46] LABS: ANION GAP 11.9 mEq/L (7-13); CHLORIDE,CL 100 mmol/L (98-107); SODIUM,NA 135 mmol/L (136-145)
[2020-05-20 15:07] VITALS: BP 143/81; PULSE 85
== END 2020-05-20 15:23 | disposition home or self-care (01) ==
LOC: DL.ED 13:33
DX: I10 Essential (primary) hypertension (principal); F41.9 Anxiety disorder, unspecified; E03.9 Hypothyroidism, unspecified; E66.9 Obesity, unspecified; Z68.24 Body mass index [BMI] 24.0-24.9, adult; Z88.8 Allergy status to other drugs, medicaments and biological substances; Z72.0 Tobacco use
CPT/HCPCS: 36415; 80053; 84443; 84484; 85025; 93005; 99283; 99283-25

== ENCOUNTER 2020-09-04 16:41 | Emergency (ER) | payer OTHER ==
[2020-09-04 17:17] VITALS: BP 143/76; PULSE 77
--- NOTE | 2020-09-04 17:18 | EDM.PDOC ---
<Bandar Childs - Last Filed: 09/04/20 18:41> ED HPI GENERAL MEDICAL PROBLEM - General Chief Complaint: Abdominal Pain Stated Complaint: STOMACH PAIN, NAUSEA Time Seen by Provider: 09/04/20 17:00 Source of Information: Reports: Patient History Limitations: Reports: No Limitations - History of Present Illness INITIAL COMMENTS - FREE TEXT/NARRATIVE: This 64 yo female patient reports to the ED with abdominal pain and bloating. The patient reports her symptoms started this afternoon at about 1300 after eating a donut. The patient reports she did have hernia surgery 4-5 years ago, but has not had any other abdominal surgeries. The patient reports she has been having intermittent abdominal pains and nausea this afternoon. Onset: Today Duration: Hour(s):, Intermittent Location: Reports: Abdomen (bloating) Quality: Reports: Ache, Sharp Severity: Moderate Improves with: Reports: None Worsens with: Reports: None Context: Reports: Other Associated Symptoms: Reports: No Other Symptoms - Related Data Allergies Allergy/AdvReac Type Severity Reaction Status Date / Time lisinopril Allergy Severe Other Verified 05/10/20 17:24 Home Meds: Home Meds Levothyroxine [Synthroid] 175 mcg PO ACBRK 05/19/14 [History] amLODIPine [Norvasc] 5 mg PO DAILY #30 tablet 05/11/20 [Rx] Past Medical History HEENT History: Reports: Impaired Vision Cardiovascular History: Reports: Hypertension Respiratory History: Reports: None Gastrointestinal History: Reports: None Genitourinary History: Reports: None 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 BANK TELLER History: tubal ligation 1991 Musculoskeletal History: Reports: Fracture Other Musculoskeletal History: HAND FRACTURE Neurological History: Reports: None Psychiatric History: Reports: None Endocrine/Metabolic History: Reports: Hypothyroidism, Obesity/BMI 30+ Hematologic History: Reports: None Immunologic History: Reports: None Oncologic (Cancer) History: Reports: None Dermatologic History: Reports: Eczema - Infectious Disease History Infectious Disease History: Reports: Chicken Pox, Measles, Mumps, Other (See Below) Other Infectious Disease History: Covid 19 in February - Past Surgical History Head Surgeries/Procedures: Reports: None Other HEENT Surgeries/Procedures: EYE LID SURGERY BILAT EYES Cardiovascular Surgical History: Reports: None Respiratory Surgical History: Reports: None GI Surgical History: Reports: Other (See Below) Other GI Surgeries/Procedures: S/P UMBILICAL HERNIA SURGERY Female Surgical History: Reports: Tubal Ligation Endocrine Surgical History: Reports: None Neurological Surgical History: Reports: None Musculoskeletal Surgical History: Reports: None Oncologic Surgical History: Reports: None Dermatological Surgical History: Reports: None Social & Family History - Family History Family Medical History: No Pertinent Family History Other GI Family History: LIVER FAILURE Neurological: Reports: Alzheimers Disease - Caffeine Use Caffeine Use: Reports: Coffee Other Caffeine Use: drinks 3 cups coffee once daily Caffeine Use Comment: 3 cups of coffee this am ED ROS GENERAL - Review of Systems Review Of Systems: Comprehensive ROS is negative, except as noted in HPI. ED EXAM, GI/ABD - Physical Exam Exam: See Below Exam Limited By: No Limitations General Appearance: Alert, WD/WN, Moderate Distress Eyes: Bilateral: Normal Appearance, EOMI Ears: Normal External Exam, Normal Canal, Hearing Grossly Normal, Normal TMs Nose: Normal Inspection, Normal Mucosa, No Blood Throat/Mouth: Normal Inspection, Normal Lips, Normal Teeth, Normal Gums, Normal Oropharynx, Normal Voice, No Airway Compromise Head: Atraumatic, Normocephalic Neck: Normal Inspection, Supple, Non-Tender, Full Range of Motion Respiratory/Chest: No Respiratory Distress, Lungs Clear, Normal Breath Sounds, No Accessory Muscle Use, Chest Non-Tender Cardiovascular: Normal Peripheral Pulses, Regular Rate, Rhythm, No Edema, No Gallop, No JVD, No Murmur, No Rub, Extra Beats GI/Abdominal Exam: Normal Bowel Sounds, No Abnormal Bruit, No Mass, Pelvis Stable, Distended, Guarding, Tender (Female) Exam: Deferred Rectal (Female) Exam: Deferred Back Exam: Normal Inspection, Full Range of Motion, NT Extremities: Normal Inspection, Normal Range of Motion, Non-Tender, Normal Capillary Refill, No Pedal Edema Neurological: Alert, Oriented, CN II-XII Intact, Normal Cognition, Normal Gait, Normal Reflexes, No Motor/Sensory Deficits Psychiatric: Normal Affect, Normal Mood Skin Exam: Warm, Dry, Intact, Normal Color, No Rash Lymphatic: No Adenopathy #1 Interpretation EKG Date: 09/04/20 Time: 16:58 Rhythm: NSR Rate (Beats/Min): 73 (with PAC's) [place]: Normal P-Wave: Present QRS: Normal ST-T: Normal QT: Normal Comparison: NA - No Prior EKG Course - Re-Assessments/Exams Free Text/Narrative Re-Assessment/Exam: 09/04/20 18:41 The patient reports her symptoms resolved just prior to the CT. The patient still had the CT to confirm that there was no other medical reason for her symptoms. Departure - Departure Disposition: Home, Self-Care 01 Clinical Impression: Abdominal pain Qualifiers: Abdominal location: upper abdomen, unspecified Qualified Code(s): R10.10 - Upper abdominal pain, unspecified - Discharge Information Instructions: Abdominal Pain, Adult, Ousc-su-Ybur Forms: ED Department Discharge Additional Instructions: Follow up tomorrow , sooner if symptoms return liquid diet, advance slowly tomorrow follow up with primary to further evaluate findings of nodule on left adrenal gland <Lizeth Knowles - Last Filed: 09/04/20 19:43> Course - Vital Signs Last Recorded V/S: Last Vital Signs Temp 98.1 F 09/04/20 16:57 Pulse 77 09/04/20 16:57 Resp 16 09/04/20 16:57 BP 143/76 H 09/04/20 16:57 Pulse Ox 95 09/04/20 16:57 - Orders/Labs/Meds Orders: Active Orders 24 hr Category Date Time Status EKG Documentation Completion [RC] STAT Care 09/04/20 16:54 Active CULTURE BLOOD [BC] Stat Lab 09/04/20 17:06 Received Labs: Laboratory Tests 09/04/20 09/04/20 09/04/20 Range/Units 16:42 17:00 17:00 WBC 9.8 (5.0-10.0) 10^3/uL RBC 4.69 (4.2-5.4) 10^6/uL Hgb 14.0 (12.0-16.0) g/dL Hct 41.7 (37.0-47.0) % MCV 88.9 (80-100) fL MCH 29.9 (27.0-34.0) pg MCHC 33.6 (33.0-35.0) g/dL Plt Count 312 (150-450) 10^3/uL Neut % (Auto) 65.3 (42.2-75.2) % Lymph % (Auto) 22.6 (20.5-50.1) % Carroll % (Auto) 8.6 H (2-8) % Eos % (Auto) 2.9 (1.0-3.0) % Baso % (Auto) 0.6 (0.0-1.0) % Sodium 134 L (136-145) mmol/L Potassium 3.7 (3.5-5.1) mmol/L Chloride 99 (98-107) mmol/L Carbon Dioxide 25 (21-32) mmol/L Anion Gap 13.7 H (7-13) mEq/L BUN 14 (7-18) mg/dL Creatinine 0.99 (0.55-1.02) mg/dL Est Cr Clr Drug Dosing 54.45 mL/min Estimated GFR (MDRD) 57 BUN/Creatinine Ratio 14.1 (No establ ref range) Glucose 94 (70-99) mg/dL Lactic Acid (0.4-2.0) mmol/L Calcium 8.6 (8.5-10.1) mg/dL Magnesium 2.0 (1.8-2.4) mg/dL Total Bilirubin 0.2 (0.2-1.0) mg/dL AST 12 L (15-37) U/L ALT 16 (14-59) U/L Alkaline Phosphatase 83 (46-116) U/L Troponin I < 0.017 (0.000-0.056) ng/mL Total Protein 8.0 (6.4-8.2) g/dL Albumin 4.0 (3.4-5.0) g/dL Globulin 4.0 Albumin/Globulin Ratio 1.0 Amylase 78 (25-115) U/L Lipase 219 (73-393) U/L Urine Color Yellow (YELLOW) Urine Appearance Slightly cloudy (CLEAR) Urine pH 7.0 (5.0-9.0) Ur Specific [place] 1.025 (1.005-1.030) Urine Protein Negative (NEGATIVE) Urine Glucose (UA) Negative (NEGATIVE) Urine Ketones Negative (NEGATIVE) Urine Occult Blood Small H (NEGATIVE) Urine Nitrite Negative (NEGATIVE) Urine Bilirubin Negative (NEGATIVE) Urine Urobilinogen 0.2 (0.2-1.0) mg/dL Ur Leukocyte Esterase Negative (NEGATIVE) Urine RBC 10-20 H /HPF Urine WBC 0-5 (0-5/HPF) /HPF Ur Epithelial Cells Moderate H (NOT SEEN) /HPF Amorphous Sediment Few (NOT SEEN) /HPF Urine Bacteria Few (0-FEW/HPF) /HPF Urine Mucus Not seen (NOT SEEN) /LPF 09/04/20 Range/Units 17:06 WBC (5.0-10.0) 10^3/uL RBC (4.2-5.4) 10^6/uL Hgb (12.0-16.0) g/dL Hct (37.0-47.0) % MCV (80-100) fL MCH (27.0-34.0) pg MCHC (33.0-35.0) g/dL Plt Count (150-450) 10^3/uL Neut % (Auto) (42.2-75.2) % Lymph % (Auto) (20.5-50.1) % Carroll % (Auto) (2-8) % Eos % (Auto) (1.0-3.0) % Baso % (Auto) (0.0-1.0) % Sodium (136-145) mmol/L Potassium (3.5-5.1) mmol/L Chloride (98-107) mmol/L Carbon Dioxide (21-32) mmol/L Anion Gap (7-13) mEq/L BUN (7-18) mg/dL Creatinine (0.55-1.02) mg/dL Est Cr Clr Drug Dosing mL/min Estimated GFR (MDRD) BUN/Creatinine Ratio (No establ ref range) Glucose (70-99) mg/dL Lactic Acid 0.6 (0.4-2.0) mmol/L Calcium (8.5-10.1) mg/dL Magnesium (1.8-2.4) mg/dL Total Bilirubin (0.2-1.0) mg/dL AST (15-37) U/L ALT (14-59) U/L Alkaline Phosphatase (46-116) U/L Troponin I (0.000-0.056) ng/mL Total Protein (6.4-8.2) g/dL Albumin (3.4-5.0) g/dL Globulin Albumin/Globulin Ratio Amylase (25-115) U/L Lipase (73-393) U/L Urine Color (YELLOW) Urine Appearance (CLEAR) Urine pH (5.0-9.0) Ur Specific [place] (1.005-1.030) Urine Protein (NEGATIVE) Urine Glucose (UA) (NEGATIVE) Urine Ketones (NEGATIVE) Urine Occult Blood (NEGATIVE) Urine Nitrite (NEGATIVE) Urine Bilirubin (NEGATIVE) Urine Urobilinogen (0.2-1.0) mg/dL Ur Leukocyte Esterase (NEGATIVE) Urine RBC /HPF Urine WBC (0-5/HPF) /HPF Ur Epithelial Cells (NOT SEEN) /HPF Amorphous Sediment (NOT SEEN) /HPF Urine Bacteria (0-FEW/HPF) /HPF Urine Mucus (NOT SEEN) /LPF Meds: Medications Discontinued Medications Generic Name Dose Route Start Last Admin Trade Name Malikq PRN Reason Stop Dose Admin Iopamidol 100 ml 09/04/20 17:54 09/04/20 18:11 Iopamidol 612 Mg/Ml 100 Ml Bottle IVPUSH 09/04/20 17:55 100 ml ONETIME ONE Administration - Re-Assessments/Exams Free Text/Narrative Re-Assessment/Exam: 09/04/20 19:37 Continues to deny complaint. No nausea, no pain, bloating resolved. Abdomen soft normoactive BS throughout. Patient informed results of CT including adrenal nodule. [facility] [place] [facility]. Recommend followup. Liquid diet tonight, advance slowly. Follow up if symptoms worsen Departure - Departure Time of Disposition: 19:40 Condition: Good - Discharge Information *PRESCRIPTION DRUG MONITORING PROGRAM REVIEWED*: No *COPY OF PRESCRIPTION DRUG MONITORING REPORT IN PATIENT JADA: No Sepsis Event Note (ED) - Focused Exam Vital Signs: Vital Signs Temp Pulse Resp BP Pulse Ox 09/04/20 16:57 98.1 F 77 16 143/76 H 95
[2020-09-04 17:43] LABS: ANION GAP 13.7 mEq/L (7-13); CHLORIDE,CL 99 mmol/L (98-107); SODIUM,NA 134 mmol/L (136-145)
[2020-09-04] MEDS ORDERED: Iopamidol 612 MG/ML 100 ML Bottle IVPUSH ONE (17:54)
--- NOTE | 2020-09-04 19:08 | CT ---
PROCEDURE INFORMATION: Exam: CT Abdomen And Pelvis With Contrast Exam date and time: 09/04/2020 6:24 PM Age: 64 years old Clinical indication: Other: Pain; Additional info: Abdominal pain with bloating TECHNIQUE: Imaging protocol: Computed tomography of the abdomen and pelvis with contrast. Radiation optimization: All CT scans at this facility use at least one of these dose optimization techniques: automated exposure control; mA and/or kV adjustment per patient size (includes targeted exams where dose is matched to clinical indication); or iterative reconstruction. Contrast material: [id number]; Contrast volume: 75 ml; Contrast route: INTRAVENOUS (IV); COMPARISON: No relevant prior studies available. FINDINGS: Liver: Normal. No mass. Gallbladder and bile ducts: Normal. No calcified stones. No ductal dilation. Pancreas: Normal. No ductal dilation. Spleen: Normal. No splenomegaly. Adrenal glands: 1.3 cm left adrenal nodule. Kidneys and ureters: Normal. No hydronephrosis. Stomach and bowel: Diverticuli in distal colon. Pericolonic fat planes are preserved Dilated small bowel loops in mid abdomen extending into the pelvis. Multiple possible small segment transition points in the lower anterior abdomen. There is stool and gas throughout the colon Appendix: No evidence of appendicitis. Intraperitoneal space: Unremarkable. No free air. No significant fluid collection. Vasculature: Unremarkable. No abdominal aortic aneurysm. Lymph nodes: Unremarkable. No enlarged lymph nodes. Urinary bladder: Unremarkable as visualized. Reproductive: Unremarkable as visualized. Bones/joints: There is grade 1 anterolisthesis L5 on S1 with associated bilateral L5 pars interarticularis defects. Soft tissues: Unremarkable. IMPRESSION: Suspected small bowel obstruction --a single discrete transition point is not identified. There may be several transition points in the lower anterior abdomen extending into the right lower quadrant . Indeterminate 1.3 cm left adrenal nodule of. Dedicated CT or MRI of the adrenal glands could further characterize
== END 2020-09-04 19:58 | disposition home or self-care (01) ==
LOC: DL.ED 16:41
DX: R10.10 Upper abdominal pain, unspecified (principal); E03.9 Hypothyroidism, unspecified; E66.9 Obesity, unspecified; I10 Essential (primary) hypertension; Z68.28 Body mass index [BMI] 28.0-28.9, adult; Z88.8 Allergy status to other drugs, medicaments and biological substances; Z79.899 Other long term (current) drug therapy
CPT/HCPCS: 36415; 74177; 80053; 81001; 82150; 83605; 83690; 83735; 84484; 85025; 87040; 93005; 93010; 99283; 99284-25; Q9967

== ENCOUNTER → 2024-07-04 | Day surgery (SDC) | payer OTHER ==
[~2024-07-04] MED LIST changes: +Acetaminophen 325 MG Tab PO PRN; +Acetaminophen/Codeine 300-30 MG Tab PO PRN; +Cataract Ophth Solution EYELF ONE; +Cataract Ophth Solution EYERT ONE; -Dextrose 5%-0.45% NaCl 1,000 ML IV SCH; -Midazolam 1 MG/ML 2 ML SDV IV ONE; -Midazolam 1 MG/ML 2 ML SDV ONE; +Moxifloxacin 0.5% Ophth Soln 3 ML Bottle EYELF ONE; +Moxifloxacin 0.5% Ophth Soln 3 ML Bottle EYERT ONE; +Ondansetron 4 MG/2 ML SDV IVPUSH PRN; +Phenylephrine 10% Ophth Soln 5 ML Bot EYELF ONE; +Phenylephrine 10% Ophth Soln 5 ML Bot EYERT ONE; +Povidone-Iodine 5% Sterile Ophth Soln 30 ML Bottle EYELF ONE; +Povidone-Iodine 5% Sterile Ophth Soln 30 ML Bottle EYERT ONE; +Proparacaine 0.5% Ophth Soln 15 ML Bottle EYELF ONE; +Proparacaine 0.5% Ophth Soln 15 ML Bottle EYERT ONE; +Timolol Maleate 0.5% Ophth Soln 5 ML Bottle EYELF ONE; +Timolol Maleate 0.5% Ophth Soln 5 ML Bottle EYERT ONE; +Tropicamide 1% Ophth Soln 15 ML Bottle EYELF ONE; +Tropicamide 1% Ophth Soln 15 ML Bottle EYERT ONE; -fentaNYL 100 MCG/2 ML SDV IV ONE; -fentaNYL 100 MCG/2 ML SDV ONE
== END ==
LOC: DL.SDS 07:30
PROVIDERS: ATTEND Ophthalmology
DX: H26.9 Unspecified cataract (principal); Z53.8 Procedure and treatment not carried out for other reasons

== ENCOUNTER 2024-07-11 08:00 | Day surgery (SDC) | payer OTHER ==
[~2024-07-11 08:00] MED LIST changes: -Cataract Ophth Solution EYELF ONE; -Cataract Ophth Solution EYERT ONE; -Moxifloxacin 0.5% Ophth Soln 3 ML Bottle EYELF ONE; -Moxifloxacin 0.5% Ophth Soln 3 ML Bottle EYERT ONE; -Phenylephrine 10% Ophth Soln 5 ML Bot EYELF ONE; -Phenylephrine 10% Ophth Soln 5 ML Bot EYERT ONE; -Povidone-Iodine 5% Sterile Ophth Soln 30 ML Bottle EYELF ONE; -Povidone-Iodine 5% Sterile Ophth Soln 30 ML Bottle EYERT ONE; -Proparacaine 0.5% Ophth Soln 15 ML Bottle EYELF ONE; -Proparacaine 0.5% Ophth Soln 15 ML Bottle EYERT ONE; -Timolol Maleate 0.5% Ophth Soln 5 ML Bottle EYELF ONE; -Timolol Maleate 0.5% Ophth Soln 5 ML Bottle EYERT ONE; -Tropicamide 1% Ophth Soln 15 ML Bottle EYELF ONE; -Tropicamide 1% Ophth Soln 15 ML Bottle EYERT ONE
[2024-07-11] MEDS: Proparacaine 0.5% Ophth Soln 15 ML Bottle EYELF ONE ×2 (08:21→09:20)
[2024-07-11] MEDS: Moxifloxacin 0.5% Ophth Soln 3 ML Bottle EYELF ONE (08:24)
[2024-07-11] MEDS: Povidone-Iodine 5% Sterile Ophth Soln 30 ML Bottle EYELF ONE ×2 (08:24→09:21)
[2024-07-11] MEDS: Tropicamide 1% Ophth Soln 15 ML Bottle EYELF ONE (08:25)
[2024-07-11] MEDS: Timolol Maleate 0.5% Ophth Soln 5 ML Bottle EYELF ONE (08:26)
[2024-07-11] MEDS: Cataract Ophth Solution EYELF ONE (08:29)
[2024-07-11] MEDS: Phenylephrine 10% Ophth Soln 5 ML Bot EYELF ONE (08:29)
[2024-07-11] MEDS: Proparacaine 0.5% Ophth Soln 15 ML Bottle EYERT ONE (09:20)
[2024-07-11] MEDS: Povidone-Iodine 5% Sterile Ophth Soln 30 ML Bottle EYERT ONE (09:21)
[2024-07-11] MEDS: Apraclonidine 0.5% Ophth Soln 5 ML Bot EYELF ONE (09:21)
[2024-07-11] MEDS: Apraclonidine 0.5% Ophth Soln 5 ML Bot EYERT ONE (09:21)
[2024-07-11] MEDS: Diclofenac Sodium 0.1% Ophth Soln 5 ML Bottle EYERT ONE (09:22)
[2024-07-11] MEDS: Diclofenac Sodium 0.1% Ophth Soln 5 ML Bottle EYELF ONE (09:22)
[2024-07-11] MEDS: Lidocaine 1% 30 ML SDV ONE (09:23)
[2024-07-11] MEDS: Dexamethasone/Neomycin/Polymyxin B Ophth Oint 3.5 GM Tube EYERT ONE (09:23)
[2024-07-11] MEDS: Dexamethasone/Neomycin/Polymyxin B Ophth Oint 3.5 GM Tube EYELF ONE (09:23)
[2024-07-11] MEDS: VANCOmycin 500 MG SDV EYELF ONE (09:24)
[2024-07-11] MEDS: VANCOmycin 500 MG SDV EYERT ONE (09:24)
[2024-07-11 10:05] VITALS: BP 101/60; PULSE 98
== END 2024-07-11 10:04 | disposition home or self-care (01) ==
LOC: DL.SDS 08:00
PROVIDERS: ATTEND Ophthalmology
DX: H25.812 Combined forms of age-related cataract, left eye (principal); I10 Essential (primary) hypertension; E03.9 Hypothyroidism, unspecified; Z88.8 Allergy status to other drugs, medicaments and biological substances; Z79.899 Other long term (current) drug therapy; Z79.890 Hormone replacement therapy; Z87.891 Personal history of nicotine dependence
CPT/HCPCS: A9270-GY; J3370; J3490

== ENCOUNTER 2024-08-01 06:49 | Day surgery (SDC) | payer OTHER ==
[~2024-08-01 06:49] MED LIST changes: -Acetaminophen 325 MG Tab PO PRN; -Acetaminophen/Codeine 300-30 MG Tab PO PRN; -Sodium Chloride 0.9% 10 ML Syringe FLUSH PRN
[2024-08-01] MEDS ORDERED: Sodium Chloride 0.9% 10 ML Syringe IV ONE (06:50)
[2024-08-01] MEDS ORDERED: Dexamethasone 4 MG/ML SDV IV ONE (06:50)
[2024-08-01] MEDS ORDERED: Midazolam 1 MG/ML 2 ML SDV IV ONE (06:50)
[2024-08-01] MEDS ORDERED: Acetaminophen/Codeine 300-30 MG Tab PO PRN (07:00)
[2024-08-01] MEDS ORDERED: Acetaminophen 325 MG Tab PO PRN (07:00)
[2024-08-01] MEDS: Sodium Chloride 0.9% 10 ML Syringe FLUSH PRN (07:12)
[2024-08-01] MEDS: Proparacaine 0.5% Ophth Soln 15 ML Bottle EYERT ONE ×2 (07:13→08:26)
[2024-08-01] MEDS: Moxifloxacin 0.5% Ophth Soln 3 ML Bottle EYERT ONE (07:14)
[2024-08-01] MEDS: Tropicamide 1% Ophth Soln 15 ML Bottle EYERT ONE (07:16)
[2024-08-01] MEDS: Povidone-Iodine 5% Sterile Ophth Soln 30 ML Bottle EYERT ONE ×2 (07:16→08:27)
[2024-08-01] MEDS: Phenylephrine 10% Ophth Soln 5 ML Bot EYERT ONE (07:17)
[2024-08-01] MEDS: Timolol Maleate 0.5% Ophth Soln 5 ML Bottle EYERT ONE (07:17)
[2024-08-01] MEDS: Cataract Ophth Solution EYERT ONE (07:18)
[2024-08-01] MEDS: Apraclonidine 0.5% Ophth Soln 5 ML Bot EYERT ONE (08:27)
[2024-08-01] MEDS: Diclofenac Sodium 0.1% Ophth Soln 5 ML Bottle EYERT ONE (08:28)
[2024-08-01] MEDS: Dexamethasone/Neomycin/Polymyxin B Ophth Oint 3.5 GM Tube EYERT ONE (08:29)
[2024-08-01] MEDS: Lidocaine 1% 30 ML SDV INJECT ONE (08:30)
[2024-08-01] MEDS: VANCOmycin 500 MG SDV EYERT ONE (08:31)
[2024-08-01 12:27] VITALS: BP 105/64; PULSE 70
== END 2024-08-01 09:15 | disposition home or self-care (01) ==
LOC: DL.SDS 06:49
PROVIDERS: ATTEND Ophthalmology
DX: H25.811 Combined forms of age-related cataract, right eye (principal)
CPT/HCPCS: A9270-GY; J1100; J2003; J2250; J3370; J3490